=== PATIENT | female | born 1960 | race Caucasian/White ===

== ENCOUNTER 2017-03-22 08:22 | Inpatient (IN) | payer BC ==
[~2017-03-22] VITALS: Ht 160 cm; Wt 72.0 kg
[~2017-03-22 08:22] MED LIST: LORA0.5T PO; MULT1TAB60 PO; PARO20TA98 PO; SERT50TA5 PO; TRAZ100T15 PO; [UNRECOGNIZED DRUG - REMARK]
[2017-03-22 09:00] LABS: HEMATOCRIT 38.6 % (34.6-47.8); HEMOGLOBIN 13.2 g/dL (11.7-16.4); WHITE BLOOD COUNT 4.3 x10^3/uL (3.4-10)
[2017-03-22] MEDS ORDERED: SODIUM CHLORIDE FLUSH 10ML SYR IVF ONE (09:00)
[2017-03-22 09:13] LABS: ASPARTATE AMINO TRANSFERASE 198 U/L (15-37); BLOOD UREA NITROGEN 12 mg/dL (7-18)
[2017-03-22] MEDS ORDERED: OMNIPAQUE 350 MG/ML, 100ML BOTTLE ONE (09:55)
[2017-03-22] MEDS ORDERED: KETOROLAC 30 MG/1 ML IVPush ONE (10:00)
[2017-03-22] MEDS ORDERED: KETOROLAC 30 MG/1 ML ONE (10:47)
[2017-03-22] MEDS ORDERED: LORazepam 2 MG/ML, 1ML IV PRN ×3 (11:00)
[2017-03-22] MEDS ORDERED: LABETALOL 5MG/ML, 20ML IVPush PRN (11:00)
[2017-03-22] MEDS ORDERED: DOCUSATE 100 MG CAPSULE PO PRN (11:00)
[2017-03-22] MEDS ORDERED: ONDANSETRON ODT 4 MG PO PRN (11:00)
[2017-03-22] MEDS ORDERED: hydrALAzine 20 MG/ML, 1ML IVPush PRN (11:00)
[2017-03-22] MEDS ORDERED: ACETAMINOPHEN 325 MG TABLET PO PRN (11:00)
[2017-03-22] MEDS ORDERED: DIAZEPAM 5 MG/ML, 2ML IV ONE (12:00)
[2017-03-22] MEDS ORDERED: GLUCAGON 1 MG IM PRN (12:30)
[2017-03-22] MEDS ORDERED: DEXTROSE 4 GM TAB.CHEW PO PRN (12:30)
[2017-03-22] MEDS ORDERED: DEXTROSE 50%, 50ML SYRINGE IVPush PRN (12:30)
[2017-03-22] MEDS: NS + 40MEQ KCL 1,000 ML IV SCH ×2 (12:37→21:48)
[2017-03-22] MEDS: HEPARIN 5,000 UNITS/ML, 1ML SQ SCH ×2 (14:00→20:45)
[2017-03-22] MEDS: morphine SULFATE 10 MG/ML, 1ML IVPush PRN ×2 (17:59→21:48)
[2017-03-22 19:11] VITALS: BP 106/73
[2017-03-22] MEDS: CHLORDIAZEPOXIDE 25 MG CAPSULE PO SCH (20:33)
[2017-03-22] MEDS: TRAZODONE 100MG TABLET PO SCH (20:33)
[2017-03-22] MEDS: SODIUM CHLORIDE FLUSH 10ML SYR IVF SCH (20:34)
[2017-03-22] MEDS: LORazepam 2 MG/ML, 1ML IV PRN (20:51)
[2017-03-23] MEDS: LORazepam 2 MG/ML, 1ML IV PRN ×2 (01:08→05:29)
[2017-03-23 02:55] VITALS: BP 121/76
[2017-03-23] MEDS: morphine SULFATE 10 MG/ML, 1ML IVPush PRN ×2 (03:20→08:05)
[2017-03-23 05:01] LABS: HEMATOCRIT 33.5 % (34.6-47.8); HEMOGLOBIN 11.6 g/dL (11.7-16.4)
[2017-03-23 05:09] LABS: BLOOD UREA NITROGEN 16 mg/dL (7-18)
[2017-03-23] MEDS: HEPARIN 5,000 UNITS/ML, 1ML SQ SCH ×4 (06:00→22:30)
[2017-03-23 07:30] LABS: ASPARTATE AMINO TRANSFERASE 134 U/L (15-37)
[2017-03-23 07:41] VITALS: BP 109/76
[2017-03-23] MEDS: SODIUM CHLORIDE FLUSH 10ML SYR IVF SCH ×2 (09:00→19:55)
[2017-03-23] MEDS: SERTRALINE 50MG TABLET PO SCH (09:42)
[2017-03-23] MEDS: CHLORDIAZEPOXIDE 25 MG CAPSULE PO SCH ×3 (09:42→19:55)
[2017-03-23] MEDS: MULTIVITAMINS/MINERALS TABLET PO SCH (09:42)
[2017-03-23] MEDS: KETOROLAC 30 MG/1 ML IM PRN ×2 (09:43→20:07)
[2017-03-23] MEDS: NS + 40MEQ KCL 1,000 ML IV SCH ×3 (09:53→22:29)
[2017-03-23] MEDS ORDERED: CEFTRIAXONE PMX 2GM/50ML 50 ML IV SCH (11:30)
[2017-03-23] MEDS: HYDROcodone/APAP 5/325 TABLET PO PRN ×3 (12:27→21:15)
[2017-03-23 13:56] VITALS: BP 101/68
[2017-03-23 19:30] VITALS: BP 114/76
[2017-03-23] MEDS: TRAZODONE 100MG TABLET PO SCH (19:55)
[2017-03-23] MEDS: CEPHALEXIN 500 MG CAPSULE PO SCH (19:55)
[2017-03-24 02:31] VITALS: BP 124/76
[2017-03-24] MEDS: HYDROcodone/APAP 5/325 TABLET PO PRN ×3 (06:05→16:47)
[2017-03-24 07:49] VITALS: BP 95/63
[2017-03-24] MEDS: SERTRALINE 50MG TABLET PO SCH (09:53)
[2017-03-24] MEDS: CHLORDIAZEPOXIDE 25 MG CAPSULE PO SCH ×3 (09:53→19:27)
[2017-03-24] MEDS: MULTIVITAMINS/MINERALS TABLET PO SCH (09:53)
[2017-03-24] MEDS: KETOROLAC 30 MG/1 ML IM PRN (09:53)
[2017-03-24] MEDS: SODIUM CHLORIDE FLUSH 10ML SYR IVF SCH ×2 (09:54→19:27)
[2017-03-24] MEDS: CEPHALEXIN 500 MG CAPSULE PO SCH ×2 (09:54→19:27)
[2017-03-24 13:34] VITALS: BP 107/76
[2017-03-24] MEDS: HEPARIN 5,000 UNITS/ML, 1ML SQ SCH ×2 (14:00→19:28)
[2017-03-24] MEDS: IBUPROFEN 200 MG TABLET PO PRN (16:47)
[2017-03-24] MEDS: TRAZODONE 100MG TABLET PO SCH (19:27)
[2017-03-24 19:41] VITALS: BP 132/94
[2017-03-25 02:02] VITALS: BP 113/73
[2017-03-25] MEDS: HYDROcodone/APAP 5/325 TABLET PO PRN ×3 (03:12→13:20)
[2017-03-25] MEDS: IBUPROFEN 200 MG TABLET PO PRN ×2 (03:12→09:55)
[2017-03-25] MEDS ORDERED: IBUP-1484 PO (07:14)
[2017-03-25 07:59] VITALS: BP_SYST 164; BP_SYST 168; BP_DIAS 100; BP_DIAS 103
[2017-03-25] MEDS: SODIUM CHLORIDE FLUSH 10ML SYR IVF SCH (09:00)
[2017-03-25] MEDS: CEPHALEXIN 500 MG CAPSULE PO SCH (09:53)
[2017-03-25] MEDS: CHLORDIAZEPOXIDE 25 MG CAPSULE PO SCH (09:53)
[2017-03-25] MEDS: SERTRALINE 50MG TABLET PO SCH (09:54)
[2017-03-25] MEDS ORDERED: CEPH-376 PO (11:03)
[2017-03-25 12:44] VITALS: BP 107/74
[2017-03-25] MEDS: HEPARIN 5,000 UNITS/ML, 1ML SQ SCH (13:47)
== END 2017-03-25 14:25 | disposition home or self-care (01) | DRG 184 ==
LOC: ED 10:27 → EDIP 10:28 → ED 10:56 → 4NOR 11:23 → DCLOUNGE 03-25 14:11
PROVIDERS: ADMIT Internal Medicine Cardiovascular Disease; ATTEND Internal Medicine Cardiovascular Disease
DX: S22.42XA Multiple fractures of ribs, left side, initial encounter for closed fracture (principal); E87.2 Acidosis; N39.0 Urinary tract infection, site not specified; W19.XXXA Unspecified fall, initial encounter; E87.6 Hypokalemia; Z66 Do not resuscitate; F10.129 Alcohol abuse with intoxication, unspecified; F32.9 Major depressive disorder, single episode, unspecified; F41.9 Anxiety disorder, unspecified; K82.8 Other specified diseases of gallbladder; Z88.2 Allergy status to sulfonamides; Y93.89 Activity, other specified; Y92.89 Other specified places as the place of occurrence of the external cause
CPT/HCPCS: 36415; 71010; 74177; 80048; 80053; 80307; 81001; 82140; 83605; 83690; 83735; 84100; 84450; 84460; 85025; 85610; 87077; 87086; 87186; 96374; J0696; J1885; Q9967; G0479; J2060; J2270; J3480